=== PATIENT | male | born 1950 | race Caucasian/White ===

== ENCOUNTER → 2018-04-13 10:28 | Outpatient (CLI) | payer MEDICARE, SELFPAY ==
[2018-04-13 11:50] LABS: PSA,Total - Annual Screen 1.67 ng/mL (0.00-4.00)
== END ==
PROVIDERS: Family Provider Student in an Organized Health Care Education/Training Program; PCP Student in an Organized Health Care Education/Training Program; Visit Provider Nurse Practitioner Adult Health
DX: Z12.5 Encounter for screening for malignant neoplasm of prostate (principal); R31.29 Other microscopic hematuria
CPT/HCPCS: 36415; 84153; 88108; 88313; G0103

== ENCOUNTER → 2018-04-13 17:17 | Outpatient (CLI) | payer MEDICARE, SELFPAY ==
--- NOTE | 2018-04-13 | CYSPIN_PTH ---
PATIENT: ARMEN CHING V LOC: [facility] U#:[id number] AGE/SX: 75/M ROOM: RE04/13/[address]: LINDSAY Silverio : 1950 BED: DIS: SPEC #: [id number] RECD: 04/14/18 08:33 STATUS: JAVIER JOIE #: [id number] DOMI: 04/13/18 00:[address]: Karely Whitfield NP DEPT: CYTOLOGY RECD BY: Praveen Velasquez ENTERED: 04/14/18 08:34 SP TYPE: CYSPIN FL MADELYN DR: Dr. Mike Watson, DO Tissues: Urine Procedures: Pap Stain (control) Special Stain Group II Cytospin Fluid HEADER OPERATION: Not noted PRE-OP DIAGNOSIS: Hematuria TISSUE SUBMITTED: Urine DIAGNOSIS CYTOLOGY Urine for cytology (Cytospin): Atypical urothelial cells are noted. SJ:shaka 04/17/18 COMMENT Clinical correlation and appropriate followup are necessary. CYTOLOGY STUDY Slides are reviewed. CYTOLOGY GROSS Received is 15 ml of gold clear fluid labeled with the patient's name and and designated per the requisition as urine. Submitted for cytology preparation. /Rigo 04/14/18 TC:5 CPT: 97866
[2018-04-13 17:23] LABS: Cytology, Body Fluid / CSF SEE PATHOLOGY REPORT
== END ==
PROVIDERS: Family Provider Student in an Organized Health Care Education/Training Program; PCP Student in an Organized Health Care Education/Training Program; Visit Provider Nurse Practitioner Adult Health
DX: R31.9 Hematuria, unspecified (principal)
CPT/HCPCS: 88108; 88313

== ENCOUNTER 2018-04-28 13:30 | Emergency (ER) | payer MEDICARE, SELFPAY ==
[2018-04-28 13:31] VITALS: BP 121/93; PULSE 67; RESP 18; TEMP 36.6; O2SAT 96; BMI 25.4
[2018-04-28 13:41] VITALS: BP 143/93; PULSE 64; RESP 14; O2SAT 97
[2018-04-28 13:44] VITALS: BP 143/93; BP 144/86; PULSE 64; PULSE 75
--- NOTE | 2018-04-28 14:07 | CT_ITS ---
STUDY: CT BRAIN WITHOUT CONTRAST REASON FOR EXAM: Male, 67 years old. 2 hour history of dizziness. RADIATION DOSAGE (If Supplied By Facility): CTDIvol = ( 44.99 ) mGy, DLP = ( 812.98 ) mGycm TECHNIQUE: Transaxial CT imaging of the brain was performed without administration of intravenous contrast material. Individualized dose optimization techniques were used for this CT. COMPARISON: None. FINDINGS: Normal soft tissue structures. Normal calvarium. There is mild cerebral atrophy with widening of the extra-axial spaces and ventricular dilatation. A tiny rounded lucency is seen in deep right parietal and deep left frontoparietal lobe suggestive of prior lacunar infarcts. Normal basal ganglia and thalami. Normal brainstem. Normal cerebellum. There is no intracranial hemorrhage. There are no findings of an acute ischemic infarction. Mucosal thickening of the left axillary sinus. Partial opacification of the ethmoid sinuses. Mucosal polyp or retention cyst in the right sphenoid sinus. CT/Brain/Head without Contrast IMPRESSION: Chronic involutional changes of the brain. Sinusitis. Electronically Signed: Kris Kuhn MD at 15:02 EDT Tel [phone], Service support ,
--- NOTE | 2018-04-28 14:07 | ED.VISSUMM ---
- ER Visit Summary Date of Service: 04/28/18 Chief Complaint: Dizziness History of Present Illness: The patient is a 67 M who presents with dizziness that began this morning when he woke up. Patient states he feels like he is off balance. Patient denies any hearing changes or tinnitus. Patient denies any visual changes. Patient does admit to a mild headache. Patient admits to some nausea but denies any vomiting. Patient denies any chest pain or shortness of breath. Patient states he did take a Viagra tablet this morning and thinks that may be what caused his dizziness. Patient states nothing seems to improve the dizziness. Patient states the dizziness is not related to any position changes. Physical Examination: Vital signs are stable. Patient is afebrile. Patient is in no acute distress. Cranial nerves II through XII are intact. There are no focal motor or sensory deficits noted. Finger to nose was intact. Heel wallace was intact. Oral mucosa is pink and moist. Pupils are equal, round, and reactive to light bilateral. Extraocular muscles are intact. There is no nystagmus noted. Neck is supple. Trachea is midline. There is no JVD or carotid bruits noted. Heart was regular rate and rhythm. Lungs are clear and equal bilaterally. Abdomen is soft. Bowel sounds are normal. There is no tenderness. The remaining physical exam is within normal limits. Test Results: [] Emergency Department Course and Treatment: [] Treatment Plan: [] Disposition: [] Impression: [] This note was generated with [employer] dictation software. It may contain incorrect words, spelling, and punctuation that were not noted in review of the chart prior to signing ED Disposition - Plan for ED Patient: Disposition: Home or Assisted Living Chief Complaint: Dizziness Diagnosis: Dizziness Instructions: ED Dizziness [facility] Prescriptions: Meclizine HCl [Antivert] 25 mg PO 4X/DAY PRN PRN #20 tab PRN Reason: Dizziness Referrals: Mike Watson DO [Primary Care Provider] -
[2018-04-28 14:10] VITALS: BP 142/80; BP 146/75; PULSE 60; PULSE 75
[2018-04-28] MEDS: Meclizine HCl 25 MG Tablet PO (14:25)
[2018-04-28 14:34] LABS: Absolute Lymphocyte Count 1.43 X10^3/ul (0.83-4.51); Basophil# 0.05 X10^3/uL; Basophil% 0.8 % (0-1); Eosinophil# 0.09 X10^3/uL; Eosinophils% 1.5 % (0-5); Hematocrit 43.7 % (40-54); Hemoglobin 14.7 g/dl (13.0-16.5); Lymphocyte # 1.43 X10^3/ul (4.0); Lymphocyte % 23.4 % (19-41); Mean Corp Hgb Conc 33.6 g/gl (32-36); Mean Corpuscular Hgb 29.7 pg (27.0-32.0); Mean Corpuscular Volume 88.3 fL (80-94); Mean Platelet Vol. 10.5 fl (6.2-12.0); Monocyte# 0.55 X10^3/uL; Neutrophil # 3.99 X10^3/uL (2.7-7.7); Neutrophil % 65.3 % (47-70); POSITIVE COUNT NO; POSITIVE DIFFERENTIAL NO; POSITIVE MORPHOLOGY NO; Platelet Count 187 K/mm3 (150-450); RBC Distribution Width CV 13.7 % (11.6-14.6); RBC Distribution Width SD 44.2 fl (35.1-43.9); Red Blood Count 4.95 M/mm3 (4.6-6.2); White Blood Count 6.1 K/mm3 (4.4-11.0)
--- NOTE | 2018-04-28 14:40 | RAD_ITS ---
STUDY: X-RAY CHEST REASON FOR EXAM: Male, 67 years old. Two-hour history of dizziness. TECHNIQUE: PA and lateral views of the chest. COMPARISON: None. FINDINGS: EKG electrodes are seen. Hyperinflation. The lungs are clear. There is no demonstrated pleural abnormality. Normal size heart. Normal mediastinum and jane. Normal visualized pulmonary arteries. Normal visualized aortic arch and descending thoracic aorta. There are degenerative changes of the visualized thoracic spine. Normal visualized ribs, clavicles, and shoulders. There is no demonstrated abnormality of the visualized soft tissue structures of the upper abdomen. RAD/Chest PA and Lateral IMPRESSION: Hyperinflation. Electronically Signed: Kris Kuhn MD at 15:02 EDT Tel [phone], Service support ,
[2018-04-28 14:47] LABS: Anion Gap 8 (5-15); BUN 7 mg/dL (7-18); BUN/Creat Ratio 8.3 RATIO (10-20); Calcium,Total 9.2 mg/dL (8.5-10.1); Chloride 101 mmol/L (98-107); Creatinine, Serum 0.85 mg/dL (0.70-1.30); EST Glomerular Filtration Rate 95 mL/min (>60); Est Glom Filt Rate - Afr Amer 115 mL/min (>60); Estimated Creatinine Clearance 72.35 ml/min; Glucose 98 mg/dL (74-106); Potassium 3.6 mmol/L (3.5-5.1); Sodium Level 141 mmol/L (136-145)
[2018-04-28 16:14] VITALS: BP 132/78; PULSE 80; RESP 14; O2SAT 99
[2018-04-28 16:27] VITALS: BP 125/70; PULSE 80; RESP 14; O2SAT 98
[2018-04-28 16:56] LABS: Bedside Glucose 110 mg/dL (70-110)
== END 2018-04-28 16:28 | disposition home or self-care (01) ==
PROVIDERS: Emergency Provider Emergency Medicine; Family Provider Student in an Organized Health Care Education/Training Program; PCP Student in an Organized Health Care Education/Training Program
DX: R42 Dizziness and giddiness (principal); R11.0 Nausea; R51 Headache; K21.9 Gastro-esophageal reflux disease without esophagitis; I10 Essential (primary) hypertension
CPT/HCPCS: 70450; 71046; 80048; 82962; 85025; 99285; A4216

== ENCOUNTER → 2018-05-02 07:17 | Outpatient (CLI) | payer MEDICARE, SELFPAY ==
--- NOTE | 2018-05-02 07:21 | CT_ITS ---
STUDY: CT ABDOMEN AND PELVIS WITH AND WITHOUT CONTRAST REASON FOR EXAM: Male, 67 years old. Chronic hematuria. RADIATION DOSAGE (If Supplied By Facility): CTDIvol = ( 9.99 ) mGy, DLP = ( 902.99 ) mGycm TECHNIQUE: Transaxial images were obtained from the dome of the diaphragm to the symphysis pubis without oral contrast. 100 ml of Isovue 300 contrast was administered. Sagittal and coronal images were reconstructed. Individualized dose optimization techniques were used for this CT. COMPARISON: Comparison is made with prior study dated March 25, 2016. FINDINGS: The visualized lung bases are unremarkable. The visualized portions of the heart are within normal limits. Normal liver. Normal gallbladder and extrahepatic biliary system. Normal spleen. Normal pancreas. Normal bilateral adrenal glands. There are multiple nonobstructive right intrarenal calculi. The largest measures 4.5 mm. Multiple nonobstructive left intrarenal calculi. The largest measures 4.9 mm and is in the lower pole. Tiny cysts are seen in both kidneys. There is a small hiatal hernia. Normal small intestine. There are multiple colonic diverticula consistent with diverticulosis. The appendix is visualized and appears normal. There is diffuse atherosclerotic calcification of the abdominal aorta, without a demonstrated aneurysm. Dilatation of the common iliac arteries bilaterally. The right common iliac artery measures 1.5 cm. The left common iliac artery measures 1.1 cm. Normal inferior vena cava. Normal retroperitoneum. Normal urinary bladder. There are prostatic calcifications. The prostate measures 3.5 cm part 4 cm. This causes indentation at the bladder base. There is a small umbilical hernia containing fat. Normal osseous structures. CT/CT Abd/Pelvis W/WO Contrast IMPRESSION: Nonobstructive bilateral intrarenal calculi. Small cysts seen in both kidneys. Mild enlargement of the prostate with calcifications. Electronically Signed: Kris Kuhn MD at 8:24 EDT Tel [phone], Service support ,
== END ==
LOC: CT 07:18
PROVIDERS: Family Provider Student in an Organized Health Care Education/Training Program; PCP Student in an Organized Health Care Education/Training Program; Visit Provider Nurse Practitioner Adult Health
DX: R31.9 Hematuria, unspecified (principal)
CPT/HCPCS: 74178; Q9967

== ENCOUNTER → 2018-05-09 11:54 | Outpatient (CLI) | payer MEDICARE, SELFPAY ==
--- NOTE | 2018-05-09 11:56 | RAD_ITS ---
STUDY: X-RAY - ABDOMEN/PELVIS REASON FOR EXAM: Male, 67 years old. Abdominal pain mainly on the left side. Hematuria. TECHNIQUE: Frontal KUB, 2 views. COMPARISON: CT abdomen and pelvis 05/02/2018. FINDINGS: Moderately prominent distributed stool burden of large bowel could reflect underlying constipation. The small bowel pattern is unremarkable. Grossly normal size and position of the solid organs of the abdomen. Multiple pelvic phleboliths. Minimal low lumbar spondylosis and mild thoracal lumbar scoliosis. No significant hip joint degenerative changes. Tiny nonobstructing calyceal calculi of both right and the left kidney seen on recent prior CT scan of 05/02/2018 are not well seen on this examination based on technique and stool in the large bowel obscuring detail. There is no visible calculus along the course of the right or left ureter. RAD/Abdomen Single View IMPRESSION: There is a history of nonobstructing calyceal calculi on the CT scan of May 02, 2018. The scapulae are not clearly visible on today's study. There is no evidence of ureteral calculus. If acute calculus passage is suspected consider follow-up noncontrast CT abdomen and pelvis. Somewhat prominent stool burden, nonspecific. Correlate for constipation. Electronically Signed: Chad Reed, at 12:29 EDT Tel , Service support ,
== END ==
LOC: RAD.FUTURE 11:55
PROVIDERS: Family Provider Student in an Organized Health Care Education/Training Program; PCP Student in an Organized Health Care Education/Training Program; Visit Provider Urology
DX: N20.0 Calculus of kidney (principal)
CPT/HCPCS: 74018

== ENCOUNTER 2019-08-21 01:27 | Emergency (ER) | payer MEDICARE, SELFPAY ==
[2019-08-21 01:29] VITALS: BP 175/84; PULSE 60; RESP 18; TEMP 36.5; O2SAT 97; BMI 24.0
--- NOTE | 2019-08-21 02:33 | ED.RN ---
PT CAME UP TO THE NURSE IN THE HALLWAY AND STATED HIS BLOOD PRESSURE HAS DECREASED DRASTICALLY AND HE DOES NOT BELIEVE HE NEEDS SEEN OR TREATMENT ANYMORE. PT WAS INFORMED THE DOCTOR WOULD BE IN SHORTLY TO SEE HIM TO WHICH HE REPLIED HE NO LONGER BELIEVED HE NEEDED TO BE SEEN BUT WOULD COME BACK WITH ANY FURTHER ISSUES. DR. DOMINGUEZ NOTIFIED
== END 2019-08-21 02:30 ==
LOC: ED 02:37
PROVIDERS: Emergency Provider Emergency Medicine; Family Provider Student in an Organized Health Care Education/Training Program; PCP Student in an Organized Health Care Education/Training Program
DX: I10 Essential (primary) hypertension (principal); R06.02 Shortness of breath
CPT/HCPCS: 99281